=== PATIENT | male | born 1990 | race Caucasian/White ===

== ENCOUNTER 2021-07-26 10:09 | Day surgery (SDC) | payer OTHER ==
[~2021-07-26] VITALS: Ht 182.9 cm; Wt 86.0 kg
[2021-07-26] VITALS (182 sets, daily range): BP systolic 81–150; BP diastolic 40–100
--- NOTE | 2021-07-26 09:50 | NUR ---
PATIENT TO ROOM AMBULATORY. CONSENTS OBTAINED. VITAL SIGNS OBTAINED. DR CLEMENTE NOTIFIED. NEW ORDERS RECEIVED. ADMISSION ASSESSMENT COMPLETED AT THIS TIME. ORIENTED PATIENT TO ROOM AND UNIT. CALL LIGHT IN REACH. WILL CONTINUE TO MONITOR.
--- NOTE | 2021-07-26 10:45 | NUR ---
DR CLEMENTE AT BEDSIDE AT THIS TIME. CENTRAL LINE PLACED.
[2021-07-26 11:33] LABS: HEMATOCRIT 39.1 % (39.0-50.0); IMMATURE GRANULOCYTES 0.2 % (0.0-5.0); MEAN CELL VOLUME 89.5 fL CALC (80.0-100.0); MEAN CORPUSCULAR HGB 29.7 pG CALC (26.0-32.0); MEAN CORPUSCULAR HGB CONC 33.2 g/dL CAL (32.0-36.0); NEUT# 4.76 thou/uL (1.82-7.42); RED BLOOD COUNT 4.37 mill/uL (4.70-6.10); RED CELL DISTRI WIDTH 12.7 % (11.5-15.5)
[2021-07-26 11:43] LABS: ALBUMIN 3.6 g/dL (3.2-5.0); ALKALINE PHOSPHATASE 51 u/l (38-126); ANION GAP 14 (6-22 (CALC)); BILIRUBIN, TOTAL 0.4 mg/dL (0.0-1.4); BUN 5 mg/dL (9-20); BUN/CREATININE RATIO 8 (12-20 (CALC)); CARBON DIOXIDE 23 mmol/l (22-30); CHLORIDE 105 mmol/l (95-108); CREATININE 0.7 mg/dL (0.7-1.3); GFR > 60 ML/MIN (>=60 (CALC)); GFR FOR AFR.AMER. > 60 ML/MIN (>=60 (CALC)); SGOT/AST 39 u/l (17-59); SODIUM 139 mmol/l (137-146); TOTAL PROTEIN 6.6 g/dL (6.3-8.2)
--- NOTE | 2021-07-26 13:00 | NUR ---
Induction Note Patient to ANR procedure room. Time out performed at 1310. Patient placed on monitors, Carina hugger, bilateral wrist restraints applied for ET tube protection. Versed 5mg given IV push at 1312 Rocoronium 10mg at 1313 IV push and held for 90 seconds. Propofol bolus of 150mg given at 1314 IV push. Succinylcholine 80mg given IV push at 1315. Smooth intubation with 7.5 ETT. Positive CO2. Positive Auscultation for air exchange. Patient placed on ventilator for spontaneous ventilation. Placed on Propofol IV drip at 1320. OG inserted. Positive air on auscultation. Positive gastric content. Stomach washed at this time. Naltrexone 100mg given via OG tube with Clonidine 0.3 mg given via OG Tube. OG clamped for 45 minutes. Will monitor patient for symptoms of withdrawal and adjust propfol accordingly.
--- NOTE | 2021-07-26 14:12 | NUR ---
OG open note OG open at this time. Gastric content draining into drainage bag. OG to drain for 45 minutes. Propofol will be titrated down based on patient.
--- NOTE | 2021-07-26 15:00 | NUR ---
OG close note Stomach washed at this time. Naltrexone 50 mg with Clonidine 0.2 mg via OG tube. OG will be clamped for 45 minutes.
--- NOTE | 2021-07-26 16:30 | NUR ---
OG close note Stomach washed at this time. Naltrexone 25 mg with Clonidine 0.3 mg via OG tube. OG will be clamped for 45 minutes.
--- NOTE | 2021-07-26 18:00 | NUR ---
OG close note Stomach washed at this time. Naltrexone 12.5 mg via OG tube. OG clamped will prepare for extubation
--- NOTE | 2021-07-26 18:30 | NUR ---
Extubation note Closing medications given Benadryl 50mg IV push, Decadron 10mg IV push,Magnesium 4 grams IV, Zofran 8mg IV push, Octreotide 100mcg SC. Stomach washed out prior to extubation. Suctioned gastric content. OG removed. Patient extubated. Propofol Discontinued. Wrist restraints removed. Carina hugger Removed. See ANR Moderate sedate recovery record for further notes and assessment.
--- NOTE | 2021-07-26 19:00 | NUR ---
patient to med surg via bed
--- NOTE | 2021-07-26 19:05 | NUR ---
PT ARRIVED TO MED SURG FLOOR ACCOMPANIED BY ASHLEY KHANNA; BRYN. BEDSIDE REPORT FROM ASHLEY HEWITT.
--- NOTE | 2021-07-26 19:45 | NUR ---
PT STARTED TO WOKE UP, STILL DROWSY; A&O X2. EVEN AND LABORED RESPIRATIONS; CLEAR LUNG SOUNDS UPON AUSCULTATION. O2 @ 3L VIA NASAL CANNULA IN PLACE. ACTIVE BOWEL SOUNDS X4 QUADRANTS. CENTRAL LINE ON RIGHT FEMORAL HEALTHY AND PATENT. BED ALARM AND SAFETY PRECAUTIONS IN PLACE. CALL LIGHT WITHIN REACH.
--- NOTE | 2021-07-26 20:25 | NUR ---
PT IN BED RESTLESS AND AGITATED. BED ALARM WENT ON; PT TRYING TO GET OUT OF BED. PT C/O NAUSEA. ADMINISTERED ATIVAN AND PHENERGAN PER EMAR. PT HELPED WITH THE USE OF URINAL; 500 CC CLEAR, YELLOW URINE. BED ALARM AND SAFETY PRECAUTIONS IN PLACE. CALL LIGHT WITHIN REACH.
--- NOTE | 2021-07-26 23:54 | NUR ---
PT STILL RESTLESS; PUT THE O2 CANNULA IN PLACE SEVERAL TIMES SINCE PT KEEPS REMOVING IT. PUT THE NON REBREATHER MASK ON; PT REMOVED IT SEVERAL TIMES. BED ALARM AND SAFETY PRECAUTIONS IN PLACE. CALL LIGHT WITHIN REACH.
--- NOTE | 2021-07-27 00:52 | NUR ---
BED ALARM WENT ON; PT TRYING TO GET OUT OF BED. PT ASSISTED TO RESTROOM BY AIDE. PT BACK IN BED. PT UNABLE TO FIND A COMFORTABLE POSITION. BED ALARM AND SAFETY PRECAUTIONS IN PLACE. CALL LIGHT WITHIN REACH.
[2021-07-27 02:36] VITALS: BP 113/53
--- NOTE | 2021-07-27 04:20 | NUR ---
PT SLEEPING; HAD TO WOKE PT UP TO ADMINISTER SCHEDULED MEDICATIONS. HOLD CATAPRES PER DR'S HEART RATE PARAMETERS. HR WAS 53. FLUSHED CENTRAL LINE ON RIGHT GROIN; PATENT. PT HELPED WITH THE USE OF URINAL; 450 CC OF CLEAR, YELLOW URINE. PT C/O COLD; WARM BLANKET AND ELICEO HUGGER PROVIDED. BED ALARM AND SAFETY PRECAUTIONS IN PLACE. CALL LIGHT WITHIN REACH.
[2021-07-27 05:21] LABS: HEMATOCRIT 40.6 % (39.0-50.0); HEMOGLOBIN 13.9 g/dl (14.0-18.0); IMMATURE GRANULOCYTES 0.2 % (0.0-5.0); MEAN CELL VOLUME 85.8 fL CALC (80.0-100.0); MEAN CORPUSCULAR HGB 29.4 pG CALC (26.0-32.0); MEAN CORPUSCULAR HGB CONC 34.2 g/dL CAL (32.0-36.0); NEUT# 10.03 thou/uL (1.82-7.42); RED BLOOD COUNT 4.73 mill/uL (4.70-6.10); RED CELL DISTRI WIDTH 12.4 % (11.5-15.5)
[2021-07-27 05:57] LABS: ALBUMIN 3.8 g/dL (3.2-5.0); ALKALINE PHOSPHATASE 62 u/l (38-126); ANION GAP 16 (6-22 (CALC)); BILIRUBIN, TOTAL 0.5 mg/dL (0.0-1.4); BUN 4 mg/dL (9-20); BUN/CREATININE RATIO 7 (12-20 (CALC)); CARBON DIOXIDE 22 mmol/l (22-30); CHLORIDE 105 mmol/l (95-108); CREATININE 0.6 mg/dL (0.7-1.3); GFR > 60 ML/MIN (>=60 (CALC)); GFR FOR AFR.AMER. > 60 ML/MIN (>=60 (CALC)); SGOT/AST 35 u/l (17-59); SODIUM 139 mmol/l (137-146); TOTAL PROTEIN 6.9 g/dL (6.3-8.2)
--- NOTE | 2021-07-27 07:00 | NUR ---
REPORT FROM SANDHYA OGDEN. ASSUMED PT CARE.
[2021-07-27 07:21] VITALS: BP 121/78
--- NOTE | 2021-07-27 10:10 | NUR ---
PT HAD MODERATE AMOUNT OF GREEN COLORED EMESIS IN BASIN. WILL MEDICATE FOR NAUSEA, COOL WET WASH CLOTH PROVIDED AT THIS TIME. CALL LIGHT WITHIN REACH. WILL CONTINUE TO MONITOR.
[2021-07-27 12:38] VITALS: BP 138/80
--- NOTE | 2021-07-27 15:37 | NUR ---
ASSISTED PT UP TO SHOWER. PT INSTRUCTED TO CALL WHEN FINISHED. CALL LIGHT WITHIN REACH. WILL CONTINUE TO MONITOR.
--- NOTE | 2021-07-27 15:45 | NUR ---
PT BACK INTO BED. DRESSED IN HOME CLOTHES. PT FOLLOWS COMMANDS AND WAS ABLE TO DRESS SELF WITHOUT ASSISTANCE. NO APPARENT DISTRESS NOTED. CALL LIGHT WITHIN REACH. WILL CONTINUE TO MONITOR.
[2021-07-27 16:50] VITALS: BP 132/89
[2021-07-27 17:19] VITALS: BP 132/89
--- NOTE | 2021-07-27 18:12 | NUR ---
Discharge instructions given. Patient verbalizes understanding of same. Discharged in stable condition via Wheelchair to Home with family. All belongings sent with pt. triple lumen central line removed by Samantha RAMIREZ on shift. pt tolerated well.
== END 2021-07-27 18:12 | disposition home or self-care (01) | DRG 897 ==
LOC: ANR 10:09 → MS2 10:09 → ANR 07-27 18:12
PROVIDERS: ATTEND Anesthesiology
DX: F11.20 Opioid dependence, uncomplicated (principal)
CPT/HCPCS: J2060; J2354; J3475